=== PATIENT | male | born 1960 | race Two or more races ===

== ENCOUNTER 2024-09-20 11:54 | Day surgery (SDC) | payer MEDICARE, SELFPAY ==
[2024-09-15 10:49] VITALS: BMI 27.1
[2024-09-20 12:12] VITALS: BP 126/71; PULSE 42; RESP 16; TEMP 36.5; O2SAT 94
[2024-09-20] MEDS: LACTATED RINGERS 1000ML 1,000 ML 50 ML IV (12:19)
--- NOTE | 2024-09-20 12:56 | EXP.ANES.CKL ---
[facility] Disclaimer: The information contained in this section may have been updated after the patient was seen, as this information can be updated by other users. Medical History Hx of renal cell cancer History of colon cancer Surgical History Hx of hernia repair History of partial colectomy Family History Mother Heart disease Father Heart disease Social History Smoking Status: Never smoker alcohol intake: never substance use type: denies use current occupational status: employed Travel in the last 8 weeks: None [facility] Anesthesia Checklist Patient Identification Patient Identification: Arm Band Structural Data Admitted From: Home Planned Operative Procedure/s: Colonoscopy Consent for Planned Operative Procedure(s) Verified: Yes Verified Documents: Surgical Consent and History and Physical NPO Status Verified Time NPO: 00:00 Additional verifications Anesthesia Reactions: No Airway Assessment Mallampati Score:: Class II C-Spine Mobility Assessed: Yes TMJ Mobility Assessed: Yes Dentition: Good Dentition Neurological Assessment Level of Consciousness: Awake, Alert and Appropriate Anesthesia Plan Anesthesia Risk discussed: Yes Anesthesia Plan: Verified ASA Class: II Anesthesia Type: MAC
[2024-09-20 13:34] VITALS: O2SAT 98
--- NOTE | 2024-09-20 13:49 | P.PCN_ITS ---
[facility] Procedure Note Date: 09/20/24 Time: 13:49 Procedure Note:: Colonoscopy Procedure Report: Colonoscopy with cold snare polypectomy Endoscopist: Wiliam Chappell II, MD Referring physician: BEAN Singh Date of Procedure: September 20, 2024 Equipment: Olympus 190 variable stiffness pediatric colonoscope Sedation: MAC sedation Indication: Mr. Gramajo is a 64-year-old gentleman who is here for follow-up surveillance colonoscopy. The patient was found to have stage III colon cancer and kidney cancer 9 years ago and underwent right hemicolectomy (in [facility]). He subsequently had 6 months of chemotherapy. He has been in remission. He has had 2 subsequent colonoscopies and his last colonoscopy was 3 years ago and normal. He reports no abdominal pain, weight loss, change in his bowel habits or rectal bleeding. He reports no family history of colon cancer. Procedure: Prior to the procedure, a history and physical exam was performed, and patient's medications and allergies were reviewed. The risks, benefits and alternatives of the sedation and procedure were discussed with the patient. All questions were answered and informed consent was obtained. The patient was brought to the procedure room. Patient identification and proposed procedure were verified by the physician and the nurse. The patient was placed in a left lateral decubitus position and the scope was passed under direct vision. Throughout the procedure, the patient's blood pressure, pulse, and oxygen saturations were monitored continuously. The colonoscopy was accomplished without difficulty. The patient tolerated the procedure well. Findings: On digital rectal examination there was normal rectal tone. There were no external hemorrhoids. The colonoscope was introduced through the anal canal to the rectum and advanced to the ileocolonic anastomosis which was widely patent and normal. The scope was advanced a short distance into the ileum which was normal. The scope was then withdrawn into the colon. There was a single 4 mm polyp in the transverse colon which was removed via cold snare polypectomy. The remaining transverse and descending colon were normal. There were very shallow diverticuli in the sigmoid colon (mild sigmoid diverticulosis). The rectum itself was normal. Upon retroflexion within the rectum there were grade 2 internal hemorrhoids. The preparation was excellent throughout with [place] Preparation Score of 9. The cecal time was 10 minutes. Impression: 1. Diminutive transverse colon polyp 2. Mild sigmoid diverticulosis 3. Grade 2 internal hemorrhoids Plan: I will follow-up the polyp histology and recommend repeat surveillance colonos copy again in 5 years. I would encourage psyllium bulking fiber supplementation on a maintenance basis.
[2024-09-20 13:55] VITALS: BP 107/77; PULSE 71; RESP 17; TEMP 36.2; O2SAT 94
[2024-09-20 14:05] VITALS: BP 114/81; PULSE 66; RESP 17; O2SAT 95
[2024-09-20 14:15] VITALS: BP 103/72; PULSE 51; RESP 17; O2SAT 94
[2024-09-20 14:24] VITALS: BP 107/76; PULSE 68; RESP 17; O2SAT 94
--- NOTE | 2024-10-14 16:00 | P.CONS_ITS ---
History of Present Illness *Admission Date: 09/20/24 *Reason for visit:: Surveillance colonoscopy *History of present illness: Mr. Gramajo is a 64-year-old gentleman who is here for follow-up surveillance colonoscopy. The patient was found to have stage III colon cancer and kidney cancer 9 years ago and underwent right hemicolectomy (in [facility]). He subsequently had 6 months of chemotherapy. He has been in remission. He has had 2 subsequent colonoscopies and his last colonoscopy was 3 years ago and normal. He reports no abdominal pain, weight loss, change in his bowel habits or rectal bleeding. He reports no family history of colon cancer. [facility] Disclaimer: The information contained in this section may have been updated after the patient was seen, as this information can be updated by other users. Medical History (Updated 10/14/24 @ 16:01 by Wiliam Chappell II, MD) Hx of renal cell cancer History of colon cancer Surgical History Hx of hernia repair History of partial colectomy Family History Mother Heart disease Father Heart disease Social History (Updated 09/20/24 @ 12:57 by Prashanth Fish CRNA) Smoking Status: Never smoker alcohol intake: never substance use type: denies use current occupational status: employed Travel in the last 8 weeks?: None Have you lived/traveled outside [place] in past 30 days?: No Contact w/someone who lives/traveled outside [place] past 30 days?: No Exposure to someone with infectious disease in past 14 days?: No Do you have a fever (greater than 100.4 F or 38 C)?: No Have you tested positive for COVID-19?: No Exposed to someone with COVID-19 in past 14 days?: No Do you have a sore throat?: No Do you have a cough?: No Do you have any weakness?: No Are you experiencing any nausea/vomitting?: No Do you have any diarrhea?: No Are you experiencing any unusual bleeding?: No Do you have any muscle aches/pain?: No Do you have any abdominal pain?: No Are you experiencing loss of taste or smell?: No Review of Systems Review of Systems Review of systems (narrative): Negative *Cardiovascular Comments: Negative *Gastrointestinal Comments: Negative *Genitourinary Comments: Negative *Musculoskeletal Comments: Negative *Neurologic Comments: Negative Meds Home Medications and Allergies Home Medications ?Medication ?Instructions ?Recorded ?Confirmed ?Type No Known Home Medications 09/20/24 09/20/24 History New Prescriptions to Start Prescriptions: Allergies Allergy/AdvReac Type Severity Reaction Status Date / Time No Known Allergies Allergy Verified 09/20/24 12:11 Exam (Inpt) Vital signs and Labs for Last 24 Hours: Temp Pulse Resp BP Pulse Ox O2 Del Method O2 Flow Rate 97.2 F L 68 17 107/76 L 94 L Room Air 5 09/20/24 13:55 09/20/24 14:24 09/20/24 14:24 09/20/24 14:24 09/20/24 14:24 09/20/24 14:24 09/20/24 13:34 Assessment and Plan *Assessment and plan (1) Personal history of colon cancer, stage III: Status: Acute Category: Medical Code(s): Z85.038 - Personal history of other malignant neoplasm of large intestine Plan A/P: 1. Personal history of stage III colon cancer is the preprocedural diagnosis. The patient will be anesthetized/sedated using MAC sedation. The patient has been seen and examined. Cardiac and lung assessment prior to the examination is stable. Proceed with planned surveillance colonoscopy.
--- NOTE | 2024-11-15 06:57 | EXP.HP ---
History of Present Illness *Admission Date: 09/20/24 *History of present illness: Mr. Gramajo is a 64-year-old gentleman who is here for follow-up surveillance colonoscopy. The patient was found to have stage III colon cancer and kidney cancer 9 years ago and underwent right hemicolectomy (in [facility]). He subsequently had 6 months of chemotherapy. He has been in remission. He has had 2 subsequent colonoscopies and his last colonoscopy was 3 years ago and normal. He reports no abdominal pain, weight loss, change in his bowel habits or rectal bleeding. He reports no family history of colon cancer. [facility] Disclaimer: The information contained in this section may have been updated after the patient was seen, as this information can be updated by other users. Medical History (Updated 10/14/24 @ 16:01 by Wiliam Chappell II, MD) Hx of renal cell cancer History of colon cancer Surgical History Hx of hernia repair History of partial colectomy Family History Mother Heart disease Father Heart disease Social History (Updated 09/20/24 @ 12:57 by Prashanth Fish CRNA) Smoking Status: Never smoker alcohol intake: never substance use type: denies use current occupational status: employed Travel in the last 8 weeks?: None Have you lived/traveled outside [place] in past 30 days?: No Contact w/someone who lives/traveled outside [place] past 30 days?: No Exposure to someone with infectious disease in past 14 days?: No Do you have a fever (greater than 100.4 F or 38 C)?: No Have you tested positive for COVID-19?: No Exposed to someone with COVID-19 in past 14 days?: No Do you have a sore throat?: No Do you have a cough?: No Do you have any weakness?: No Are you experiencing any nausea/vomitting?: No Do you have any diarrhea?: No Are you experiencing any unusual bleeding?: No Do you have any muscle aches/pain?: No Do you have any abdominal pain?: No Are you experiencing loss of taste or smell?: No Review of Systems Review of Systems Review of systems (narrative): Negative *Cardiovascular Comments: Negative *Gastrointestinal Comments: Negative *Genitourinary Comments: Negative *Musculoskeletal Comments: Negative *Neurologic Comments: Negative Meds Home Medications and Allergies Home Medications ?Medication ?Instructions ?Recorded ?Confirmed ?Type No Known Home Medications 09/20/24 09/20/24 History New Prescriptions to Start Prescriptions: Allergies Allergy/AdvReac Type Severity Reaction Status Date / Time No Known Allergies Allergy Verified 09/20/24 12:11 Exam Data for Last 24 hours Vital signs and Labs for Last 24 Hours: Temp Pulse Resp BP Pulse Ox O2 Del Method O2 Flow Rate 97.2 F L 68 17 107/76 L 94 L Room Air 5 09/20/24 13:55 09/20/24 14:24 09/20/24 14:24 09/20/24 14:24 09/20/24 14:24 09/20/24 14:24 09/20/24 13:34 *Routine HEENT Exam Head: Present normocephalic Eye: Present EOMI and PERRL ENT: Present mucous membranes moist *Routine Neck Exam Neck: Present supple *Routine Respiratory Exam Respiratory: Present CTA bilaterally *Routine Cardiovascular Exam Cardiovascular: Present RRR *Routine Abdominal Exam Abdominal: Present soft and normoactive bowel sounds; Absent tenderness *Routine Rectal Exam Rectal:: deferred *Routine Genitalia Exam Genitalia:: deferred *Routine Extremities Exam Extremities: Absent cyanosis, clubbing or edema *Routine Skin Exam Skin: Present warm; Absent rash *Routine Neurological Exam Neurological: Present alert and oriented X3 Assessment and Plan *Assessment and plan (1) Personal history of colon cancer, stage III: Status: Acute Category: Medical Code(s): Z85.038 - Personal history of other malignant neoplasm of large intestine Plan A/P: 1. Personal history of colon cancer is the preprocedural diagnosis. The patient will be anesthetized/sedated using MAC sedation. The patient has been seen and examined. Cardiac and lung assessment prior to the examination is stable. Proceed with planned surveillance colonoscopy.
== END 2024-09-20 14:30 | disposition home or self-care (01) ==
PROVIDERS: PCP Nurse Practitioner Family; Visit Provider Internal Medicine Gastroenterology
PROC: 0DJD8ZZ Inspection of Lower Intestinal Tract, Via Natural or Artificial Opening Endoscopic (ICD-10-PCS; CPT 45378; principal; 2024-09-20 13:30)
DX: D12.3 Benign neoplasm of transverse colon (principal); K57.30 Diverticulosis of large intestine without perforation or abscess without bleeding; K64.1 Second degree hemorrhoids; Z85.528 Personal history of other malignant neoplasm of kidney; Z85.038 Personal history of other malignant neoplasm of large intestine
CPT/HCPCS: 45385; 88305; J1596; J7120